=== PATIENT | male | born 1965 | race African-American/Black ===

== ENCOUNTER 2021-06-08 17:57 | Emergency (ER) | payer OTHER, SELFPAY ==
[2021-06-08 17:50] VITALS: BP 179/99; PULSE 76; RESP 18; TEMP 36.7; O2SAT 99; BMI 25.1
--- NOTE | 2021-06-08 18:12 | DI.RAD.S_ITS ---
PROCEDURE: XR FOOT LT MIN 3V INDICATIONS: ? partial amputation of left great toe at base vs chainsaw TECHNIQUE: Three views of the foot were acquired. COMPARISON: None. FINDINGS: Bones: No fractures or dislocations. No suspicious bony lesions. Soft tissues: No tibiotalar joint effusion. Achilles tendon appears normal. No debris in the soft tissues. IMPRESSION: No fractures or foreign body. Dictated by: Xuan Mott M.D. on 06/08/2021 at 18:59 Approved by: Xuan Mott M.D. on 06/08/2021 at 19:02
--- NOTE | 2021-06-08 19:06 | ED.LOWEXIN ---
HPI - Extremity Injury (Lower) General Chief Complaint: Extremity Injury, Lower Stated Complaint: left great toe partial amputation. Time Seen by Provider: 06/08/21 18:19 Source: patient and EMS Mode of arrival: EMS History of Present Illness HPI Narrative: Patient is a 55-year-old male who is here for evaluation of an injury to his left great toe. Patient states that he was cutting firewood with a chainsaw. He states that he was wearing steel-toed boots. The chain sole hit the front of his left foot where the still to was located but then bounced back and cut his boot and cut his left great toe. Patient arrived by EMS. No other injuries from the event. Was covered with a bandage prior to arrival. He does not know when his last tetanus shot was. Related Data Previous Rx's Medication Instructions Recorded cephalexin 500 mg capsule 500 mg PO QID 7 Days #28 cap 06/08/21 Allergies Allergy/AdvReac Type Severity Reaction Status Date / Time No Known Drug Allergies Allergy Verified 06/08/21 18:12 Review of Systems Musculoskeletal Comments: Cut to left great toe Integumentary/Breasts Comments: Cut to left great toe Neurologic Comments: No sensory deficits left foot Hematologic/Lymphatic On Anticoagulants: No Patient History Medical History (Updated 06/09/21 @ 03:02 by Marko Thorne DO) Healthy adult Social History Smoking Status: Never smoker Smoking Status: Never smoker alcohol intake frequency: 0-2 drinks per day Substance Use Type: does not use Exam Initial Vital Signs Initial Vital Signs: Vital Signs Temperature 98.1 F 06/08/21 17:50 Pulse Rate 76 06/08/21 17:50 Respiratory Rate 18 06/08/21 17:50 Blood Pressure 179/99 H 06/08/21 17:50 Pulse Oximetry 99 06/08/21 17:50 HENMT Head: normal to inspection and normocephalic Cardio Pulses: dorsalis pedis present on the left Skin Other: Patient with a 3 cm laceration the dorsum of the left great toe over the IP joint. Neuro Sensory Exam: no sensory deficits noted Extrem Other: Patient is unable to flex and extend at the IP joint of the great toe of the left foot. Secondary to pain has difficulty flexing and extending at the MTP joint of left great toe. There is bone exposed through the laceration. Procedures Laceration Repair Laceration 1: Site: other (Left great toe) Side (If applicable): left Size (cm): 3 Description: irregular Depth: involves tendon Local Anesthetic: lidocaine 1% and with bicarb Amount of anesthesia used (mL): 10 Pre-repair: wound explored and irrigated extensively Skin layer closed with: nylon Size (cm): 4-0 Number of sutures: 4 Technique: simple, interrupted Nerve Block Nerve Block 1: Time out performed: Yes Local Anesthetic: lidocaine 1% and with bicarb Amount of anesthesia used (mL): 10 Side: left Nerve Blocks: digital Procedure Successful: Yes Patient Tolerated Procedure: Well Orthopedic Splinting/Casting Injury #1: Side: left Lower Extremity Immobilizer: post-op shoe Other Orthopedic Equipment: other (Orthopedic shoe) Post splinting neuro exam: no change Post splinting vascular exam: no change Placed by: Nursing Course Orders Ordered: ED Orders 06/08/21 18:12 XR foot LT min 3V Stat Discontinued Medications Cefazolin Sodium/Dextrose (Cefazolin 2 Gm/20 Ml Syringe) 2 gm IV NOW ONE Stop: 06/08/21 19:07 Last Admin: 06/08/21 19:48 Dose: 2 gm Documented by: ATAYLOR Diphtheria/Tetanus/Acell Pertussis (Tet,Diph,Pertuss(Acell),Vac/Pf 0.5 Ml Syringe) 0.5 ml IM .ONCE ONE Stop: 06/08/21 19:07 Last Admin: 06/08/21 19:47 Dose: 0.5 ml Documented by: ATAYLOR Lidocaine/Sodium Bicarbonate (Lido 1%/Sod Bicarb 8.4% (10ml) 10 Ml Syringe) 10 ml INJ NOW ONE Stop: 06/08/21 19:07 Last Admin: 06/08/21 19:47 Dose: 10 ml Documented by: ATAYLOR Lidocaine/Sodium Bicarbonate (Lido 1%/Sod Bicarb 8.4% (10ml) 10 Ml Syringe) 10 ml INJ NOW ONE Stop: 06/08/21 21:34 Last Admin: 06/08/21 21:39 Dose: 10 ml Documented by: SHERRI Vital Signs Vital signs: Vital Signs - 8 hr 06/08/21 22:05 Pulse Rate 80 Respiratory Rate 18 Blood Pressure 175/108 H Pulse Oximetry 99 MDM - Extremity Injury (Lower) Imaging Data Extremity x-ray #1: Radiologist's Impression: [address] [address] XRay Report Signed Patient: Jonathan Morillo V MR#: [id number] : 1965 Acct:[id number] Age/Sex: 55 / M Date of Service: 06/08/21 Loc: ED Accession Number: [id number] ?? Procedure: XR foot LT min 3V Ordering Provider: Marko Thorne D.O. PROCEDURE:? XR FOOT LT MIN 3V ? INDICATIONS:? ? partial amputation of left great toe at base vs chainsaw ? TECHNIQUE:? Three views of the foot were acquired.? ? COMPARISON:? None. ? FINDINGS:? ? Bones:? No fractures or dislocations.? No suspicious bony lesions.? ? Soft tissues:? No tibiotalar joint effusion.? Achilles tendon appears normal.? No debris in the soft tissues. ? ? IMPRESSION:? No fractures or foreign body. ? ? Dictated by: Xuan Mott M.D. on 06/08/2021 at 18:59 ? ? Approved by: Xuan Mott M.D. on 06/08/2021 at 19:02? [facility] Narrative Medical decision making narrative: Tetanus is updated. Was given antibiotics IV. X-ray shows no signs of fracture. Has your regular laceration to the dorsum of the left great toe and given his presentation I do have suspicion that there is tendon/ligament damage. I did discuss the case with Dr. Navarro on-call for Orthopedics who stated that the wound can be closed loosely. He should be splinted with a orthopedic shoe. Started on antibiotics and follow-up with the orthopedic clinic next week. This is what was performed. Patient was given care instructions and return precautions. He expressed understanding and agreement. Discharge Plan Departure Patient Disposition: Home Clinical Impression: Laceration of toe of left foot Instructions: DI for Laceration Repair Activity Restrictions/Additional Instructions: It is important that you follow-up with the orthopedic providers. Give their office a call on Thursday. You will most likely need surgical repair of the injury. Please take the antibiotics as directed. They were sent to [facility]. Return to the emergency department for any new or worsening symptoms. Keep the bandage that was placed in the emergency department on and keep it clean and keep it dry and to follow-up with orthopedics. Prescriptions: New cephalexin 500 mg capsule 500 mg PO QID 7 Days Qty: 28 0RF Referrals: Charlene Navarro MD [Physician] -
[2021-06-08] MEDS: TET,DIPH,PERTUSS(ACELL),VAC/PF 0.5 ML SYRINGE IM (19:47)
[2021-06-08] MEDS: LIDO 1%/SOD BICARB 8.4% (10ML) 10 ML SYRINGE INJ ×2 (19:47→21:39)
[2021-06-08] MEDS: CEFAZOLIN 2 GM/20 ML SYRINGE IV (19:48)
[2021-06-08 22:05] VITALS: BP 175/108; PULSE 80; RESP 18; O2SAT 99
== END 2021-06-08 22:05 | disposition home or self-care (01) ==
PROVIDERS: Emergency Provider Emergency Medicine
DX: S91.112A Laceration without foreign body of left great toe without damage to nail, initial encounter (principal); Z23 Encounter for immunization; W29.3XXA Contact with powered garden and outdoor hand tools and machinery, initial encounter; Y93.89 Activity, other specified
CPT/HCPCS: 12002; 36415; 73630; 90471; 96374; 99284; 90715; J0690

== ENCOUNTER 2022-10-09 02:52 | Emergency (ER) | payer OTHER, MEDICAID, SELFPAY ==
[2022-10-09 02:56] VITALS: BP 175/101; PULSE 68; O2SAT 100
[2022-10-09 03:00] VITALS: PULSE 61; RESP 17; O2SAT 100
[2022-10-09 03:01] VITALS: BP 143/89; PULSE 60; RESP 16; O2SAT 99
[2022-10-09 03:05] VITALS: BP 175/101; PULSE 64; RESP 17; TEMP 36.6; O2SAT 100; BMI 22.3
--- NOTE | 2022-10-09 03:08 | ED_ITS ---
HPI - Back Pain/Injury General Chief Complaint: Chest Pain Stated Complaint: left shoulder, back pain, headache Time Seen by Provider: 10/09/22 02:54 Source: patient Mode of arrival: Ambulatory Limitations: no limitations History of Present Illness HPI Narrative: Patient is a 57-year-old male who is here for evaluation of left arm discomfort, chest discomfort, left shoulder discomfort, a slight headache. He states the symptoms have been going on for several weeks if not longer. It is not worse with palpation or movement. Has not tried anything for the symptoms. Has not been evaluated. No specific trauma. He denies any nausea or vomiting. No cough. No shortness of breath. Related Data Allergies Allergy/AdvReac Type Severity Reaction Status Date / Time No Known Drug Allergies Allergy Verified 06/08/21 18:12 Review of Systems Constitutional Constitutional: Reports system reviewed and no additional complaints, except as documented Cardiovascular Cardiovascular: Reports system reviewed and no additional complaints, except as documented Respiratory Respiratory: Reports system reviewed and no additional complaints, except as documented Gastrointestinal Gastrointestinal: Reports system reviewed and no additional complaints, except as documented Integumentary/Breasts Skin/Breast: Reports system reviewed and no additional complaints, except as documented Neurologic Neurologic: Reports system reviewed and no additional complaints, except as documented Hematologic/Lymphatic On Anticoagulants: No Patient History Medical History Healthy adult Social History Smoking Status: Never smoker Smoking Status: Never smoker alcohol intake frequency: 0-2 drinks per day Substance Use Type: does not use Exam Initial Vital Signs Initial Vital Signs: Vital Signs Pulse Rate 68 10/09/22 02:56 Blood Pressure 175/101 H 10/09/22 02:56 Pulse Oximetry 100 10/09/22 02:56 Oxygen Delivery Method Room Air 10/09/22 02:56 HENVT Head: normal to inspection and normocephalic Chest Chest: No crepitus and No tenderness Resp Effort & Inspection: normal respiratory effort Auscultation: clear to auscultation bilaterally Cardio Rate: regular rate Rhythm: regular rhythm GI Inspection: normal to inspection and non-distended Skin General: no rashes or lesions noted Neuro General: patient alert and moves all extremities Extrem General: normal to inspection and capillary refill normal Scores HEART Score Heart Score history: Slightly Suspicious Heart Score EKG: Normal Heart Score Age: 45-64 years old Heart Score risk factors: No known risk factors Heart Score troponin: < or = to normal limit Heart Score Total: 1 Course Orders Ordered: ED Orders 10/09/22 03:08 EKG-12 Lead Stat 10/09/22 03:18 Complete Blood Count AUTO DIFF Stat Comprehensive Metabolic Panel Stat Lipase Stat Troponin & CK Cardiac Panel Stat Vital Signs Vital signs: Vital Signs - 8 hr 10/09/22 03:05 10/09/22 02:56 10/09/22 02:56 Temperature 97.8 F Pulse Rate 64 68 Respiratory Rate 17 Blood Pressure 175/101 H 175/101 H Pulse Oximetry 100 100 Oxygen Delivery Method Room Air Room Air 10/09/22 03:00 10/09/22 03:01 10/09/22 03:01 Temperature Pulse Rate 61 60 Respiratory Rate 17 16 Blood Pressure 143/89 H Pulse Oximetry 100 99 Oxygen Delivery Method Room Air Room Air 10/09/22 03:30 10/09/22 03:30 Temperature Pulse Rate 59 L Respiratory Rate 13 Blood Pressure 144/88 H Pulse Oximetry 100 Oxygen Delivery Method Room Air MDM - Back Pain/Injury Lab Data Attestation: I reviewed the patient's lab results. 10/09/22 03:18 10/09/22 03:18 Labs: Lab Results 10/09/22 10/09/22 Range/Units 03:18 03:18 WBC 4.8 (4.5-11.0) X10^3/uL RBC 4.61 (4.5-5.9) X10^6/uL Hgb 14.1 (13.5-17.5) g/dL Hct 41.2 (41-53) % MCV 89.5 (80-100) fL MCH 30.5 (26-34) PG MCHC 34.1 (30-36) % RDW 14.4 (11.6-14.8) % Plt Count 210 (150-400) X10^3/uL Neut % (Auto) 49.4 L (50-75) % Lymph % (Auto) 30.5 (25-40) % Edwards % (Auto) 12.5 (3-14) % Eos % (Auto) 6.8 H (2-4) % Baso % (Auto) 0.8 (0-2) % Neut # (Auto) 2300 (3706-1860) /uL Lymph # (Auto) 1500 (0432-5509) /uL Edwards # (Auto) 600 (0-900) /uL Eos # (Auto) 300 (0-450) /uL Baso # (Auto) 0 (0-100) /uL Sodium 136 L (137-145) mmol/L Potassium 4.5 (3.4-5.1) mmol/L Chloride 103 (98-107) mmol/L Carbon Dioxide 28 (22-32) mmol/L BUN 17 (9-20) mg/dL Creatinine 1.32 H (0.66-1.25) mg/dL Estimated GFR > 60 (>60) mL/min BUN/Creatinine Ratio 12.9 (6-22) Glucose 89 (70-100) mg/dL Calcium 9.0 (8.4-10.2) mg/dL Total Bilirubin 0.8 (0.2-1.3) mg/dL AST 38 (17-59) IU/L ALT 29 (<50) IU/L Alkaline Phosphatase 43 (38-126) U/L Total Creatine Kinase 420 H (55-170) U/L CK-MB (CK-2) TNP CK-MB (CK-2) Rel Index TNP Troponin I < 0.012 (0.01-0.034) ng/mL Total Protein 7.4 (6.3-8.2) g/dL Albumin 4.3 (3.5-5.0) g/dL Globulin 3.1 (1.7-4.1) g/dL Albumin/Globulin Ratio 1.4 (1.0-2.8) Lipase 137 (23-300) U/L ECG Data Attestation: I personally reviewed and interpreted this ECG as follows: Interpretation: Sinus rhythm Ventricular rate of 53 Normal axis Normal QRS No ST T wave changes MDM Narrative Medical decision making narrative: Patient has a low risk heart score. He is had symptoms for the past several days/weeks or even longer. Troponin is negative. EKGs unremarkable. Low suspicion for ACS/CVA. Lungs are clear. No cough. Low suspicion for pneumonia. Discharge patient home with return precautions and instructions to contact his primary doctor for a follow-up. Discharge Plan Departure Patient Disposition: Home Clinical Impression: Arm pain, left, Left shoulder pain Instructions: DI for Shoulder Pain Activity Restrictions/Additional Instructions: I do recommend that you make contact with a primary doctor. Is important that you have a relationship with a provider that you can contact for follow-up. Return to the emergency department for new symptoms. Stand Alone Forms: Patient Portal/API
[2022-10-09 03:30] VITALS: BP 144/88; PULSE 59; RESP 13; O2SAT 100
[2022-10-09 03:30] LABS: Add Manual Diff / Slide Review NO; Basophils Absolute Auto 0 /uL (0-100); Basophils Percent Auto 0.8 % (0-2); Eosinophils Absolute Auto 300 /uL (0-450); Eosinophils Percent Auto 6.8 % (2-4); Hematocrit 41.2 % (41-53); Hemoglobin 14.1 g/dL (13.5-17.5); Lymphocytes Absolute Auto 1500 /uL (1100-4500); Lymphocytes Percent Auto 30.5 % (25-40); Mean Corpuscular HGB Conc 34.1 % (30-36); Mean Corpuscular Hemoglobin 30.5 PG (26-34); Mean Corpuscular Volume 89.5 fL (80-100); Monocytes Absolute Auto 600 /uL (0-900); Monocytes Percent Auto 12.5 % (3-14); Neutrophils Absolute Auto 2300 /uL (1500-7000); Neutrophils Percent Auto 49.4 % (50-75); Platelet Count 210 X10^3/uL (150-400); Red Blood Cell Count 4.61 X10^6/uL (4.5-5.9); Red Cell Distribution Width 14.4 % (11.6-14.8); White Blood Cell Count 4.8 X10^3/uL (4.5-11.0)
[2022-10-09 03:42] LABS: Alanine Aminotransferase 29 IU/L (<50); Albumin 4.3 g/dL (3.5-5.0); Albumin Globulin Ratio 1.4 (1.0-2.8); Alkaline Phosphatase 43 U/L (38-126); Aspartate Aminotransferase 38 IU/L (17-59); BUN Creatinine Ratio 12.9 (6-22); Bilirubin Total 0.8 mg/dL (0.2-1.3); Blood Urea Nitrogen 17 mg/dL (9-20); Carbon Dioxide 28 mmol/L (22-32); Chloride 103 mmol/L (98-107); Creatine Kinase 420 U/L (55-170); Estimated Glomerular Filt Rate > 60 mL/min (>60); Globulin 3.1 g/dL (1.7-4.1); Glucose 89 mg/dL (70-100); HEMOLYSIS < 15 (0-50); Lipase 137 U/L (23-300); Potassium 4.5 mmol/L (3.4-5.1); Sodium 136 mmol/L (137-145); Total Protein 7.4 g/dL (6.3-8.2)
[2022-10-09 03:54] LABS: Troponin I < 0.012 ng/mL (0.01-0.034)
[2022-10-09 04:00] VITALS: BP 128/87; PULSE 51; RESP 16; O2SAT 100
== END 2022-10-09 04:23 | disposition home or self-care (01) ==
PROVIDERS: Emergency Provider Emergency Medicine
DX: M25.512 Pain in left shoulder (principal); M79.602 Pain in left arm; R51.9 Headache, unspecified; R07.9 Chest pain, unspecified
CPT/HCPCS: 36415; 80053; 82550; 83690; 84484; 85025; 93005; 99283; 99284